=== PATIENT | male | born 1985 | race Caucasian/White ===

== ENCOUNTER 2019-10-06 22:38 | Emergency (ER) | payer MEDICAID ==
[~2019-10-06] VITALS: Ht 182.9 cm; Wt 75.0 kg
[2019-10-06] MEDS ORDERED: PENICILLIN G BENZATHINE 2,400,000 UNITS/4ML SYR IM ONE (23:45)
[2019-10-06 23:47] LABS: CLARITY URINE CLEAR (CLEAR); COLOR URINE YELLOW (YELLOW); KETONES URINE NEGATIVE (NEGATIVE); LEUKOCYTE ESTERASE URINE TRACE (NEGATIVE); NITRITE URINE NEGATIVE (NEGATIVE); OCCULT BLOOD URINE NEGATIVE (NEGATIVE); PH URINE 5.5 (4.5-8.0); PROTEIN URINE TRACE (NEGATIVE); SPECIFIC GRAVITY URINE 1.013 (1.005-1.030); UROBILINOGEN URINE 0.2 E.U./dL (0.2-1.0)
[2019-10-07 00:20] VITALS: BP 125/85
== END 2019-10-07 00:21 | disposition home or self-care (01) ==
LOC: ER 22:38
DX: A53.0 Latent syphilis, unspecified as early or late (principal); N48.9 Disorder of penis, unspecified
CPT/HCPCS: 81003; 96372; 99283; J0561

== ENCOUNTER 2019-11-05 03:57 | Emergency (ER) | payer MEDICAID ==
[~2019-11-05] VITALS: Ht 182.9 cm; Wt 75.0 kg
[2019-11-05] MEDS ORDERED: PENICILLIN G BENZATHINE 2,400,000 UNITS/4ML SYR IM ONE (06:00)
[2019-11-05 06:30] VITALS: BP 136/81
== END 2019-11-05 06:31 | disposition home or self-care (01) ==
LOC: ER 04:27
DX: A53.0 Latent syphilis, unspecified as early or late (principal)
CPT/HCPCS: 96372; 99283; J0561

== ENCOUNTER 2019-12-25 13:07 | Emergency (ER) | payer MEDICAID ==
[~2019-12-25] VITALS: Ht 182.9 cm; Wt 70.0 kg
[2019-12-25 13:26] VITALS: BP 135/77
== END 2019-12-25 16:31 | disposition left against medical advice (07) ==
LOC: ER 13:07
DX: M79.642 Pain in left hand (principal); Z53.21 Procedure and treatment not carried out due to patient leaving prior to being seen by health care provider